=== PATIENT | female | born 1975 | race Caucasian/White ===

== ENCOUNTER 2019-02-12 19:39 | Emergency (ER) | payer OTHER ==
[~2019-02-12] VITALS: Ht 162.6 cm; Wt 77.1 kg
[~2019-02-12 19:39] MED LIST: DICLOFENAC SOD50 M1 PO; FLEXERIL PO; HYDROCODONE-AP1 EAC6 PO; IBUPROFEN 800800 MG PO; MEDROLDOSEPACK PO; NAPROSYN500 MG PO; NORCO 5-325 TA1 EACH PO; ROBAXIN500 MG PO; ZPAK PO
[2019-02-12] MEDS ORDERED: NOLVADEX20 MG PO (19:47)
[2019-02-12] MEDS ORDERED: NEURONTIN 300M300 M2 PO (19:48)
[2019-02-12] MEDS ORDERED: [UNRECOGNIZED DRUG - REMARK] (19:48)
[2019-02-12] MEDS ORDERED: VITAMIN D250000 UNIT PO (19:49)
[2019-02-12] MEDS ORDERED: CALCIUM500 MG PO (19:49)
[2019-02-12] MEDS ORDERED: NORCO 5-325 TA1 EAC1 PO (21:27)
[2019-02-12] MEDS ORDERED: CLEOCIN HCL300 MG PO (21:27)
[2019-02-12 21:30] VITALS: BP 127/70
== END 2019-02-12 21:40 | disposition home or self-care (01) ==
LOC: M.ERS 19:39
DX: K04.7 Periapical abscess without sinus (principal); F17.210 Nicotine dependence, cigarettes, uncomplicated; Z90.710 Acquired absence of both cervix and uterus; Z85.3 Personal history of malignant neoplasm of breast; Z88.0 Allergy status to penicillin